=== PATIENT | female | born 1940 | race Caucasian/White ===

== ENCOUNTER → 2017-08-11 | Outpatient (CLI) | payer OTHER, MEDICARE ==
--- NOTE | 2017-08-11 15:22 | MAMMOGRAPHY REPORT ---
ULTRASOUND GUIDED BIOPSY LEFT BREAST: 08/11/2017 CLINICAL HISTORY: Left 10:00 breast mass. PATIENT CONSENT: The procedure, risks and benefits were discussed with the patient and informed writt en consent was obtained. A timeout was performed immediately prior to the procedure. PROCEDURE DESCRIPTION: With ultrasound guidance, aseptic technique, and lidocaine as the local anesth etic (1% lidocaine to anesthetize the skin and 1% lidocaine with epinephrine to anesthetize the deepe r tissues), the mass of concern in the left 10:00 breast was sampled 4 times with a 14-gauge Achieve biopsy needle. Immediately thereafter, with ultrasound guidance, aseptic technique, and lidocaine as the local anesthetic, a metallic localizer clip was placed centrally in the mass. Direct pressure w as applied to the site immediately post procedure and hemostasis was achieved. Postprocedure unilate ral mammograms were performed to confirm placement of the clip in the expected location of the breast mass. The patient tolerated the procedure without complication. She was given wound care instructi ons. The specimens were sent to pathology for analysis. COMPARISON: Comparison is made to exams dated: 08/11/2017 mammogram, 08/11/2017 ultrasound, 11/09/2014 m ammogram, 10/17/2013 mammogram - [facility], 10/10/2008, and 07/27/2006. IMPRESSION: ULTRASOUND GUIDED BIOPSY Ultrasound guided core needle biopsy of the left 10:00 breast mass, with clip placement. The patient will receive pathology results from her referring provider. Lu Mccall M.D. ah/:08/11/2017 14:33:16 Attending Technologist: Karan CHANDLER(R)(Sunni), [facility] Freight Trucker: Lu Mccall MD, [facility]
--- NOTE | 2017-08-11 15:23 | Discharge Instructions ---
Discharge Instructions Procedure Procedure Date: Aug 11, 2017. Reason for visit: Left Breast Lump. Discharge Discharge Date: Aug 11, 2017. Discharge Diagnosis: status post breast biopsy Instructions Activity Recommendations: Additional Limitations (see below) Return to School/Work: no limitations Recommended Home Diet: No Limitations Provider Instructions: ACTIVITY RECOMMENDATIONS: * No lifting, pushing, pulling or exercising the affected side for three days. RETURN TO SCHOOL/WORK: * You may return to work/school after the procedure, but do not perform any strenuous activities for 24 to 48 hours. MEDICATIONS: * Tylenol (two 325 mg) every four to six hours if needed for mild pain (if not allergic to Tylenol). DIET: * Resume previous diet. SPECIAL CARE INSTRUCTIONS: * Keep biopsy site dry for 24 hours. May shower after 24 hours, but do not soak (bathe) incision. * May remove Tegaderm (plastic patch) tomorrow AFTER showering. * Leave the steri-strips on for one week. Allow the steri-strips to fall off by themselves. If not off after one week, you may remove them. You may place a Bandaid crosswise over the strips, if desired. * Apply ice 10 minutes on and 10 minutes off as needed. * Wear a bra at bedtime to sleep more comfortably for 2-3 days. * Your referring physician should have the results after approximately 5 to 7 business days. * Call for unusual bleeding, fever, drainage, etc or if you have any questions call during normal business hours or after hours call Dr Mccall, . FOLLOW UP VISIT: Follow-up with Referring Physician as scheduled. Elias Salazary Recommendations: Call your doctor if: * Temperature above 101 degrees * Pain not relieved by pain medicine ordered * There is increased drainage or redness from any incision * You have any unanswered questions or concerns. Your Doctors Instructions noted above were prepared by provider Lu Mccall. Patient Signature Section: Patient Instructions Signature Page Jacquie Cormier Patient (or Guardian) Signature/Date: I have read and understand the instructions given to me by my caregivers. Caregiver/RN/Doctor Signature/Date: The above-named patient and/or guardian has received patient instructions on this date. + Original Patient Signature Page (only) stays with chart. Please make copy for patient.
--- NOTE | 2017-08-11 15:24 | MAMMOGRAPHY REPORT ---
BILATERAL DIGITAL DIAGNOSTIC MAMMOGRAM TOMOSYNTHESIS WITH CAD AND TARGETED LEFT ULTRASOUND: 08/11/2017 CLINICAL HISTORY: The patient reports a palpable left breast lump with associated tenderness approxim ately one week. TECHNIQUE: Breast tomosynthesis in addition to standard 2D mammography was performed. Current study was also evaluated with a Computer Aided Detection (CAD) system. Bilateral CC and MLO 2-D and tomosy nthesis images were obtained. COMPARISON: Comparison is made to exams dated: 11/09/2014 mammogram, 10/17/2013 mammogram - [facility], and 10/10/2008. BREAST COMPOSITION: There are scattered areas of fibroglandular density in both breasts. FINDINGS: A triangle marker massey the site of the palpable lump in the left lower inner quadrant. A t the site of the palpable lump there is an irregular lobulated mass which measures 2.4 x 1.5 x 1.3 c m mammographically. The remainder of both breasts are stable mammographically compared to prior exam s, without suspicious masses, calcifications, or areas of architectural distortion noted. Small circ umscribed benign-appearing mass within the right medial breast at 3:00 is stable. Asymmetry with ass ociated calcifications in the right 9:00 breast and an asymmetry with associated calcifications in th e left upper outer quadrant are not significantly changed. Targeted ultrasound was performed of the area of the palpable lump pointed out by the patient, in the left breast at approximately 10:00, 8 cm from the nipple. At the site of the palpable lump there is an irregular hypoechoic non-circumscribed solid-appearing mass which measures 1.8 x 1.4 x 1.5 cm. I nternal vascularity is present. This corresponds with the mammographic mass and is suspicious for ma lignancy. Recommend ultrasound-guided core needle biopsy for further evaluation. Targeted ultrasound was performed of the left axillary region, which shows morphologically normal lef t axillary lymph nodes, without evidence of axillary adenopathy. Postprocedural left CC and ML 2-D images were obtained after the biopsy. A new ribbon-shaped biopsy marker clip is seen within the biopsied mass. No significant postbiopsy hematoma is seen. IMPRESSION: ACR BI-RADS CATEGORY 5: HIGHLY SUGGESTIVE OF MALIGNANCY, TARGETED ULTRASOUND ACR BI-RADS CATEGORY 5: HIGHLY SUGGESTIVE OF MALIGNANCY 1. Irregular hypoechoic 1.8 cm mass at the site of the palpable lump in the left 10:00 breast. The mass is suspicious for malignancy and ultrasound-guided core needle biopsy is recommended for further evaluation. 2. No mammographic evidence of malignancy in the right breast. 3. No evidence of left axillary adenopathy. 4. Postprocedural mammograms after the biopsy demonstrate a new biopsy marker clip within the biopsi ed left breast mass. A phone call was made to the physician's office to confirm faxed results were received. The patient has been verbally notified of the results. The biopsy was performed later the same day as the diagno stic workup. Approximately 10% of breast cancers are not detected with mammography. A negative mammographic report should not delay biopsy if a clinically suggestive mass is present. Lu Mccall M.D. ah/:08/11/2017 14:42:08 Medical Transcription Supervisor: Karan FONSECA)(Sunni), [facility] letter sent: Abnormal 4/5 BI-RADS Code: ACR BI-RADS Category 5: Highly Suggestive Of Malignancy Ultrasound BI-RADS: ACR BI-RAD S Category 5: Highly Suggestive Of Malignancy
== END | disposition home or self-care (01) ==
LOC: C.MAMM 12:37
PROVIDERS: ATTEND Specialist
DX: R92.8 Other abnormal and inconclusive findings on diagnostic imaging of breast (principal); N63.20 Unspecified lump in the left breast, unspecified quadrant; C50.912 Malignant neoplasm of unspecified site of left female breast